=== PATIENT | male | born 1990 | race African-American/Black ===

== ENCOUNTER 2016-12-24 15:23 | Emergency (ER) | payer OTHER ==
[~2016-12-24] VITALS: Ht 165.1 cm; Wt 65.0 kg
[~2016-12-24 15:23] MED LIST: ABAC1TAB3 PO
[2016-12-24 15:25] VITALS: BP 123/74; PULSE 64; RESP 12; TEMP 98.8; O2SAT 99
[2016-12-24] MEDS ORDERED: cefTRIAXone 250 MG VIAL IM ONE (16:00)
[2016-12-24] MEDS ORDERED: AZITHROMYCIN PWD FOR SUSP 1 GM PACKET PO ONE (16:00)
[2016-12-24] MEDS ORDERED: LIDOCAINE HCL 1% 50 ML VIAL XX ONE (16:00)
--- NOTE | 2016-12-24 16:02 | PD ---
HPI Chief Complaint: Complaint Time Seen by Provider: 16:01 Travel History International Travel<30 days: No Contact w/Intl Traveler<30days: No Traveled to known affect area: No History of Present Illness HPI 26-year-old male presents to emergency department for evaluation. Patient states that he has been exposed to an STD and he has been having great discomfort with urination. States that it feels like razor blades. He has had discharge from his urethra. Patient participates in unprotected sexual intercourse Patient is also HIV+. Denies any fever or chills. No nausea vomiting. No abdominal pain. No other symptoms to report. PFSH Past Medical History Autoimmune Disease: Yes (HIV) Diminished Hearing: No Immune Disorder: Yes (HIV) Social History Alcohol Use: Yes Tobacco Use: Yes (1PPD) Substance Use: Yes (MARIJUANA, CRYSTAL METH) Allergies-Medications (Allergen,Severity, Reaction): Coded Allergies: No Known Allergies (Unverified , 12/24/16) Reported Meds & Prescriptions Reported Meds & Active Scripts Active Reported Triumeq (Rchveefa-Dprwyswaekej-Jadffufhjq) 600-50-300 Mg Tab 1 Tab PO DAILY Hazardous agent; use appropriate precautions for handling & disposal. Review of Systems Except as stated in HPI: all other systems reviewed are Neg Physical Exam Narrative GENERAL: Well-nourished, well-developed male patient, no acute distress SKIN: Warm and dry. HEAD: Normocephalic. EYES: No scleral icterus. No injection or drainage. NECK: Supple, trachea midline. No JVD or lymphadenopathy. CARDIOVASCULAR: Regular rate and rhythm without murmurs, gallops, or rubs. RESPIRATORY: Breath sounds equal bilaterally. No accessory muscle use. GENITOURINARY: Uncircumcised Testes descended bilaterally without evidence of rotation. No lesions or erythema. Small amount of Purulent urethral discharge. GASTROINTESTINAL: Abdomen soft, non-tender, nondistended. MUSCULOSKELETAL: No cyanosis, or edema. BACK: Nontender without obvious deformity. No CVA tenderness. Data Data Last Documented VS Vital Signs Date Time Temp Pulse Resp B/P Pulse Ox O2 Delivery O2 Flow Rate FiO2 12/24/16 15:25 98.8 64 12 123/74 99 Room Air Orders Azithromycin Powd Pack (Zithromax Powd P (12/24/16 16:00) Ceftriaxone Inj (Rocephin Inj) (12/24/16 16:00) Lidocaine 1% Inj (50 Ml) (Xylocaine 1% I (12/24/16 16:00) Gc And Chlamydia Pcr (12/24/16 15:59) Labs Laboratory Tests Test 12/24/16 16:06 Chlamydia trachomatis DNA NOT DETECTED (PCR) Neisseria gonorrhoeae DNA NOT DETECTED (PCR) MDM Medical Decision Making Medical Screen Exam Complete: Yes Emergency Medical Condition: Yes Medical Record Reviewed: Yes Differential Diagnosis STD versus urethritis versus UTI Narrative Course 26-year-old male presents emergency department for evaluation of dysuria and penile discharge. GC PCR is ordered. I have explained the patient that we do not test for other STDs emergently and encouraged him to follow-up with the [facility] department for this. He is treated empirically discharged. Diagnosis Primary Impression: Dysuria Additional Impression: STD exposure Referrals: Primary Care Physician Patient Instructions: General Instructions, Safe Sex (ED) Additional Instructions: It is important that you practice safe sex, utilize condom prophylaxis Follow-up with primary care provider You'll be informed by mail if indeed you test positive for gonorrhea or chlamydia. We did not test you for any additional STDs Additional STD testing can be done through the [facility]. Return immediately to the emergency department with any acute worsening of symptoms Med/Other Pt SpecificInfo: No Meds Exist/No RX given Disposition: 01 DISCHARGE HOME Condition: Arina Tucker RADHA Dec 24, 2016 16:02
[2016-12-24 18:38] LABS: CHLAMYDIA PCR NOT DETECTED (NOT DETECT); NEISSERIA PCR NOT DETECTED (NOT DETECT)
== END 2016-12-24 18:22 | disposition home or self-care (01) ==
LOC: NETRI 15:23
DX: F17.210 Nicotine dependence, cigarettes, uncomplicated (principal); F12.90 Cannabis use, unspecified, uncomplicated; R30.0 Dysuria; Z20.2 Contact with and (suspected) exposure to infections with a predominantly sexual mode of transmission; Z21 Asymptomatic human immunodeficiency virus [HIV] infection status
CPT/HCPCS: 87491; 87591; 96372; 99283; J0696

== ENCOUNTER 2017-02-23 16:39 | Emergency (ER) | payer OTHER ==
[~2017-02-23] VITALS: Ht 165.1 cm; Wt 63.5 kg
[2017-02-23 16:41] VITALS: BP 118/59; PULSE 74; RESP 16; TEMP 97.9; O2SAT 97
[2017-02-23 18:23] LABS: BLOOD, URINE NEG (NEG); COMMENT (UR) CULTURE INDICATED; CULTURE IF INDICATED CULTURE INDICATED; GLUCOSE,URINE NEG (NEG); KETONE, URINE NEG (NEG); MUCUS URINE FEW /lpf (OCC); NITRITE,URINE NEG (NEG); SQUAMOUS EPITHELIAL CELL URINE <1 /hpf (0-5); URINE COLOR YELLOW (YELLW/STRAW)
--- NOTE | 2017-02-23 18:25 | PD ---
HPI Chief Complaint: Complaint Time Seen by Provider: 18:22 Travel History International Travel<30 days: No Contact w/Intl Traveler<30days: No Traveled to known affect area: No History of Present Illness HPI 26 year old male presents to the emergency department for evaluation of urinary frequency and dysuria. Patient states he did have one and a penile discharge as well, but is not currently have any penile discharge. Patient does practice high risk sexual activity. He reports at least 10 sexual partners in the past 6 months. Patient states he has sex with men. He reports being HIV positive. He states he only has sex with men who are also HIV positive. He does not use condoms. Patient states that he is taking antivirals and his viral load is undetectable. Patient also reports history of asthma. He denies any other medications. He denies any abdominal pain. No back pain. No testicular pain or swelling. No other complaints. PFSH Past Medical History Autoimmune Disease: Yes (HIV) Diminished Hearing: No Immune Disorder: Yes (HIV) Social History Alcohol Use: Yes Tobacco Use: Yes (1PPD) Substance Use: Yes (MARIJUANA, CRYSTAL METH) Allergies-Medications (Allergen,Severity, Reaction): Coded Allergies: No Known Allergies (Unverified , 02/23/17) Reported Meds & Prescriptions Reported Meds & Active Scripts Active Reported Triumeq (Bkygqcbv-Wqospmkbjzno-Mahplusjuk) 600-50-300 Mg Tab 1 Tab PO DAILY Hazardous agent; use appropriate precautions for handling & disposal. Review of Systems Except as stated in HPI: all other systems reviewed are Neg Physical Exam Narrative GENERAL: Well-developed well-nourished male patient, Ambulatory. Afebrile. SKIN: Warm and dry. HEAD: Normocephalic. Atraumatic. EYES: No scleral icterus. No injection or drainage. NECK: Supple, trachea midline. No JVD or lymphadenopathy. CARDIOVASCULAR: Regular rate and rhythm without murmurs, gallops, or rubs. RESPIRATORY: Breath sounds equal bilaterally. No accessory muscle use. Lungs sounds clear to auscultation. GASTROINTESTINAL: Abdomen soft, non-tender, nondistended. MUSCULOSKELETAL: No cyanosis, or edema. BACK: Nontender without obvious deformity. No CVA tenderness. GENITOURINARY: Uncircumcised. Testes descended bilaterally without evidence of rotation. No lesions or erythema. No urethral discharge. exam was done with AZRA Dominguez, at bedside. Data Data Last Documented VS Vital Signs Date Time Temp Pulse Resp B/P Pulse Ox O2 Delivery O2 Flow Rate FiO2 02/23/17 16:41 97.9 74 16 118/59 97 Room Air Orders Urinalysis - C+S If Indicated (02/23/17 17:43) Gc And Chlamydia Pcr (02/23/17 18:22) Azithromycin Powd Pack (Zithromax Powd P (02/23/17 18:30) Ceftriaxone Inj (Rocephin Inj) (02/23/17 18:30) Lidocaine 1% Inj (50 Ml) (Xylocaine 1% I (02/23/17 18:30) Urine Culture (02/23/17 17:48) Labs Laboratory Tests Test 02/23/17 17:48 Urine Color YELLOW Urine Turbidity CLEAR Urine pH 6.0 Urine Specific [place] 1.025 Urine Protein NEG mg/dL Urine Glucose (UA) NEG mg/dL Urine Ketones NEG mg/dL Urine Occult Blood NEG Urine Nitrite NEG Urine Bilirubin NEG Urine Urobilinogen 2.0 MG/DL Urine Leukocyte Esterase LARGE Urine RBC 2 /hpf Urine WBC 40 /hpf Urine Squamous Epithelial <1 /hpf Cells Urine Mucus FEW /lpf Microscopic Urinalysis Comment CULTURE INDICATED MDM Medical Decision Making Medical Screen Exam Complete: Yes Emergency Medical Condition: Yes Medical Record Reviewed: Yes Differential Diagnosis Sexual transmitted illness versus diphtheria versus UTI Narrative Course 26 year old male presents to the emergency department for evaluation dysuria and frequency. Patient does have high risk sexual activity. UA was sent in triage. Urine for chlamydia and gonorrhea is added. Patient is given Rocephin 250 mg IM and azithromycin 1 g by mouth. UA shows large leukocyte esterase, 40 wbc's. I do believe this is most likely due to STD. However, I will cover him for Cipro for UTI. Patient verbalizes agreement and understanding. Diagnosis Primary Impression: STD exposure Referrals: Primary Care Physician call for appointment Patient Instructions: General Instructions, Sexually Transmitted Diseases (ED) Additional Instructions: Take antibiotic as directed until gone. Follow up with health department for further STD workup. Return to the emergency department for any acute, worsening of symptoms. Med/Other Pt SpecificInfo: Prescription(s) given Scripts Ciprofloxacin (Cipro)500 Mg Vna294 Mg PO BID 10 Days Ref 0 Prov:Rosina Kirkland 02/23/17 Disposition: 01 DISCHARGE HOME Condition: Stable Rosina Kirkland Feb 23, 2017 18:25
[2017-02-23] MEDS ORDERED: cefTRIAXone 250 MG VIAL IM ONE (18:30)
[2017-02-23] MEDS ORDERED: AZITHROMYCIN PWD FOR SUSP 1 GM PACKET PO ONE (18:30)
[2017-02-23] MEDS ORDERED: LIDOCAINE HCL 1% 50 ML VIAL XX ONE (18:30)
[2017-02-23] MEDS ORDERED: CIPR-9 PO (19:02)
[2017-02-23 23:04] LABS: CHLAMYDIA PCR NOT DETECTED (NOT DETECT); NEISSERIA PCR NOT DETECTED (NOT DETECT)
== END 2017-02-23 19:22 | disposition home or self-care (01) ==
LOC: NEPB 16:39
DX: R30.0 Dysuria (principal); B20 Human immunodeficiency virus [HIV] disease; Z72.52 High risk homosexual behavior
CPT/HCPCS: 81001; 87086; 87491; 87591; 96372; 99283; J0696

== ENCOUNTER 2017-07-28 23:34 | Emergency (ER) | payer OTHER ==
[~2017-07-28 23:34] MED LIST changes: +CIPR-9 PO
[2017-07-28 23:37] VITALS: BP 119/72; PULSE 88; RESP 16; TEMP 98.4; O2SAT 99
== END 2017-07-29 01:24 | disposition left against medical advice (07) ==
LOC: NED 23:34
DX: N39.0 Urinary tract infection, site not specified (principal)
CPT/HCPCS: 99281

== ENCOUNTER 2018-02-27 21:10 | Emergency (ER) | payer SELFPAY ==
[~2018-02-27] VITALS: Ht 165.1 cm; Wt 61.0 kg
[~2018-02-27 21:10] MED LIST changes: +BACT800T5 PO; -CIPR-9 PO; +ZOFR4TAB3 SL
[2018-02-27 21:19] VITALS: BP 141/86; PULSE 105; RESP 14; TEMP 99; O2SAT 94
--- NOTE | 2018-02-27 21:34 | PD ---
HPI Chief Complaint: Alcohol/Drug Intoxication Time Seen by Provider: 21:34 Travel History International Travel<30 days: No Contact w/Intl Traveler<30days: No Traveled to known affect area: No History of Present Illness HPI 27-year-old male presents emergency department under a [place] act after smoking marijuana and acting bizarre. Patient was not making sense to police. He was laughing uncontrollably. Patient tells me that he only smoked marijuana. He is not sure if it was laced with anything. He did not drink any other alcohol. Denies any medical or psychiatric history. Denies any suicidal homicidal ideations. He has no other symptoms to report. PFSH Past Medical History Asthma: Yes Autoimmune Disease: Yes (HIV) Diminished Hearing: No Immune Disorder: Yes (HIV) Past Surgical History Surgical History: No Previous Surgery Social History Alcohol Use: Yes (OCC) Tobacco Use: Yes Substance Use: Yes (MARIJUANA, CRYSTAL METH) Allergies-Medications (Allergen,Severity, Reaction): Coded Allergies: No Known Allergies (Unverified Adverse Reaction, Unknown, 02/27/18) Reported Meds & Prescriptions Reported Meds & Active Scripts Active No Active Prescriptions or Reported Medications Review of Systems Except as stated in HPI: all other systems reviewed are Neg Physical Exam Narrative GENERAL: Well-nourished male patient, in no acute distress. He is pleasant. He is laughing. SKIN: Focused skin assessment warm/dry. HEAD: Atraumatic. Normocephalic. EYES: Pupils equal and round. No scleral icterus. Bilateral scleral injection. ENT: No nasal bleeding or discharge. Mucous membranes pink and moist. NECK: Trachea midline. No JVD. CARDIOVASCULAR: Regular rate and rhythm. No murmur appreciated. RESPIRATORY: No accessory muscle use. Clear to auscultation. Breath sounds equal bilaterally. GASTROINTESTINAL: Abdomen soft, non-tender, nondistended. Hepatic and splenic margins not palpable. MUSCULOSKELETAL: No obvious deformities. No clubbing. No cyanosis. No edema. NEUROLOGICAL: Awake and alert. No obvious cranial nerve deficits. Motor grossly within normal limits. Normal speech. Data Data Last Documented VS Vital Signs Date Time Temp Pulse Resp B/P (MAP) Pulse Ox O2 Delivery O2 Flow Rate FiO2 02/27/18 21:19 99.0 105 14 141/86 (104) 94 MDM Medical Decision Making Medical Screen Exam Complete: Yes Emergency Medical Condition: Yes Medical Record Reviewed: Yes Differential Diagnosis Mood disorder versus personality disorder versus substance abuse versus psychosis Narrative Course 27-year-old male presents emergency department for evaluation unremarkable neck. Patient states he smoked marijuana. He is laughing and pleasant here in the emergency department. Denies suicidal or homicidal ideations. He is mildly tachycardic. Patient will be monitored until he is clinically sober and has a safe motor transportation home. At which time he will be discharged. Diagnosis Primary Impression: Intoxication by drug Qualified Codes: F19.929 - Other psychoactive substance use, unspecified with intoxication, unspecified Referrals: [facility] (Out patient) Patient Instructions: Cannabis Abuse (ED), General Instructions Additional Instructions: Follow-up with a primary care provider Return immediately with any acute worsening symptoms Med/Other Pt SpecificInfo: No Change to Meds Scripts No Active Prescriptions or Reported Meds Disposition: 01 DISCHARGE HOME Condition: Stable Arina Young Feb 27, 2018 21:34
== END 2018-02-27 23:03 | disposition home or self-care (01) ==
LOC: NEDAMB 21:10
DX: F19.129 Other psychoactive substance abuse with intoxication, unspecified (principal); F12.90 Cannabis use, unspecified, uncomplicated
CPT/HCPCS: 99283

== ENCOUNTER 2018-04-06 15:45 | Emergency (ER) | payer SELFPAY ==
[~2018-04-06] VITALS: Ht 165.1 cm; Wt 61.0 kg
[2018-04-06 16:17] VITALS: BP 144/83; PULSE 76; RESP 14; TEMP 99; O2SAT 97
[2018-04-06] MEDS ORDERED: AUGM875T3 PO (17:38)
--- NOTE | 2018-04-06 17:44 | PD ---
HPI Chief Complaint: ENT Complaint Time Seen by Provider: 17:20 Travel History International Travel<30 days: No Contact w/Intl Traveler<30days: No Traveled to known affect area: No History of Present Illness HPI 28-year-old male with history of HIV presents to the emergency room for evaluation of sinus congestion for the past week. Patient has associated nonproductive cough, sore throat, bilateral ear pain, and occasional headaches. He denies fever, chills, nausea, or vomiting. He has tried multiple over-the- counter medications without any relief in symptoms. CD4 count is high 900s. Viral load is undetectable. He is only on 1 medication but is compliant. PFSH Past Medical History Asthma: Yes Autoimmune Disease: Yes (HIV) Diminished Hearing: No Immune Disorder: Yes (HIV) Social History Alcohol Use: Yes (OCC) Tobacco Use: Yes Substance Use: Yes (MARIJUANA, CRYSTAL METH) Allergies-Medications (Allergen,Severity, Reaction): Coded Allergies: No Known Allergies (Unverified Adverse Reaction, Unknown, 04/06/18) Reported Meds & Prescriptions Reported Meds & Active Scripts Active Augmentin (Amoxicillin-Clavulanate) 875-125 Mg Tab 1 Tab PO BID Review of Systems Except as stated in HPI: all other systems reviewed are Neg Physical Exam Narrative GENERAL: Well-nourished, well-developed male in no acute distress. Afebrile. Ambulatory. SKIN: Focused skin assessment warm/dry. HEAD: Normocephalic. Mild maxillary sinus tenderness. EYES: No scleral icterus. No injection or drainage. NECK: Supple, trachea midline. No JVD or lymphadenopathy. ENT: Mucosa pink and moist. Moderate erythema without edema or exudates. No uvular edema. No uvular, palatal, or tonsillar deviation. Airway patent. Nasal turbinates appear normal without nasal blood, purulent drainage or septal hematoma. EARS: Bilateral pinnae and external canals appear within normal limits. Bilateral tympanic membranes without erythema, dullness or perforation. CARDIOVASCULAR: Regular rate and rhythm without murmurs, gallops, or rubs. RESPIRATORY: Breath sounds equal bilaterally. No accessory muscle use. No crackles, rales, wheezes, or rhonchi. Data Data Last Documented VS Vital Signs Date Time Temp Pulse Resp B/P (MAP) Pulse Ox O2 Delivery O2 Flow Rate FiO2 04/06/18 16:17 99.0 76 14 144/83 (524) 29 [facility] Medical Decision Making Medical Screen Exam Complete: Yes Emergency Medical Condition: Yes Medical Record Reviewed: Yes Differential Diagnosis Sinus infection, strep, pneumonia Narrative Course 28-year-old male with history of HIV presents to the emergency room for evaluation of sinus congestion, ear ache, nonproductive cough, and sore throat for the past week. Patient is afebrile well-appearing in the emergency room. Vital signs stable. Resting comfortably in bed. There is moderate erythema the pharynx without edema or exudates. No evidence of otitis media. Lung sounds clear and equal bilaterally. He does have tenderness to palpation over the maxillary sinuses. Given duration of symptoms and HIV, will treat for sinus infection with Augmentin. Told to follow-up with a primary care physician or return to the emergency room for worsening symptoms. He understands and agrees to plan. Diagnosis Primary Impression: Maxillary sinusitis, acute Qualified Codes: J01.00 - Acute maxillary sinusitis, unspecified Referrals: Primary Care Physician Additional Instructions: Augmentin as directed, until gone. Follow-up the primary care physician. Return the emergency room for worsening symptoms. Med/Other Pt SpecificInfo: Prescription(s) given Scripts Amoxicillin-Clavulanate (Augmentin) 875-125 Mg Tab 1 TAB PO BID for Infection, #20 TAB 0 Refills Prov: AsaelOlga DO 04/06/18 Disposition: 01 DISCHARGE HOME Condition: Stable Renita Almanzar April 06, 2018 17:44
== END 2018-04-06 18:01 | disposition home or self-care (01) ==
LOC: NEPA 15:45
DX: J01.00 Acute maxillary sinusitis, unspecified (principal); J45.909 Unspecified asthma, uncomplicated; Z21 Asymptomatic human immunodeficiency virus [HIV] infection status; Z72.0 Tobacco use
CPT/HCPCS: 99283